=== PATIENT | male | born 1980 | race Caucasian/White ===

== ENCOUNTER 2016-11-29 15:38 | Emergency (ER) | payer BC ==
--- NOTE | ~2016-11-29 | CT2 ---
[facility] A Service of [facility] RADIOLOGY TEXT RESULTS PATIENT: CORNELIUS ARZOLA LOCATION: CFTX : 78 UNIT #: [id number] AGE: [address]: Jessica Jaramillo APRN SEX: M ORDER DR: [id number] [facility] [address] [place], [place] [address] [id number] MR#: [id number] #: [id number] NAME: CORNELIUS ARZOLA : 1980 SEX: M STUDY DATE/TIME: 11/29/2016 18:31 UNIT: CFTX ROOM: STUDY DESCRIPTION: CT Abd and Pelv W Cont Attending Physician: Jessica Jaramillo A.P.R.N. Referring Physician: Teddy Pedersen M.D. Ordering Physician: Phillip Nicole M.D. Primary Care Physician: No Primary Care Physician MEDICAL IMAGING REPORT This report is preliminary unless electronic signature is present EXAM CT abdomen and pelvis with IV and oral contrast, 11/29/2016. COMPARISON None. PROCEDURE Axial CT abdomen and pelvis with IV and oral contrast with multiplanar reformats. This CT exam was performed with one or more of the following radiation dose reduction techniques: automatic exposure control, adjustment of mA and/or kV according to patient size, and iterative reconstruction. HISTORY Three day history of right-sided abdominal pain and diarrhea. FINDINGS The lung bases are normal. ABDOMEN: The liver and gallbladder are normal. The spleen and pancreas are normal. The kidneys and adrenal glands are normal and the aorta is normal in caliber. There is no bowel obstruction. PELVIS: The appendix is clearly seen and is normal. There is no hernia or bowel obstruction or pelvic mass, adenopathy, inflammatory change or abnormal fluid collection. The bony structures are normal. IMPRESSION Normal negative CT abdomen and pelvis. Normal appendix, no renal or bowel [facility] A Service [facility] RADIOLOGY TEXT RESULTS PATIENT: CORNELIUS ARZOLA LOCATION: CFTX : 78 UNIT #: [id number] AGE: [address]: Jessica Jaramillo APRN SEX: M ORDER DR: or biliary obstruction, no hernia, no acute abnormality. Dictated by... Gómez Tobin M.D. THIS IS AN ELECTRONICALLY VERIFIED REPORT Gómez Tobin M.D. at 12/02/2016 5:35 PM JEEVAN/kathleen TD: 11/30/2016 02:27 JOB #: [id number] MEDICAL IMAGING REPORT Page 1 of 1 COPY
[2016-11-29 16:15] LABS: BASOPHIL% 0.4 % (0-2.5); EOSINOPHIL# 0.1 X10e3 (0-0.7); EOSINOPHIL% 1.4 % (0.0-7.0); HEMOGLOBIN 16.2 gm/dL (13.0-16.0); LYMPHOCYTE# 2.1 X10e3 (1.0-3.5); LYMPHOCYTE% 21.4 % (17.0-45.0); MEAN CELL VOLUME 90.1 FL (83-96); MEAN CORPUSCULAR HEMOGLOBIN 30.4 PG (28-34); MEAN CORPUSCULAR HGB CONC 33.7 g/dL (30-36); MEAN PLATELET VOLUME 8.1 FL (6.5-11.5); MONOCYTE# 0.7 X10e3 (0-1.0); MONOCYTE% 6.8 % (3.0-12.0); NEUTROPHIL# 6.8 X10e3 (1.5-7.1); PLATELET COUNT 192 X10e3 (140-420); RED BLOOD COUNT 5.32 X10e (3.90-5.60); RED CELL DISTRIBUTION WIDTH 13.2 % (11.0-15.5); WHITE BLOOD COUNT 9.8 X10e3 (4.0-10.5)
[2016-11-29 16:26] LABS: DIFF IND NO
[2016-11-29 16:48] LABS: ALBUMIN SERUM 4.9 g/dL (3.5-5.0); BILIRUBIN, DIRECT 0.2 mg/dL (0.0-0.2); BILIRUBIN,INDIRECT 0.8 mg/dL (0.0-0.9); BUN/CREATININE RATIO 11.11; CALCIUM SERUM 9.7 mg/dL (8.4-10.2); CREATININE SERUM 0.9 mg/dL (0.6-1.4); GLOM FILT RATE Estimated 108.7 mL/min (>60); POTASSIUM 3.6 mmol/L (3.5-5.1); PROTEIN TOTAL SERUM 7.9 g/dL (6.0-8.3)
[2016-11-29 17:17] LABS: URINE SOURCE CLEAN CATCH
[2016-11-29 17:26] LABS: URINE APPEARANCE CLEAR; URINE BILIRUBIN NEG (NEG); URINE BLOOD NEG (NEG); URINE COLOR YELLOW; URINE GLUCOSE NEG (NEG); URINE KETONE NEG (NEG); URINE LEUKOCYTE ESTERASE NEG (NEG); URINE NITRATE NEG (NEG); URINE PROTEIN NEG (NEG); URINE SPECIFIC GRAVITY 1.006 (1.003-1.035); URINE UROBILINOGEN 0.2 MG/DL (NEG)
[2016-11-29 17:45] LABS: CULTURE INDICATED? NO
== END 2016-11-29 19:19 | disposition home or self-care (01) ==
LOC: CED 15:38 → CFTX 15:38
DX: R10.31 Right lower quadrant pain (principal); F17.200 Nicotine dependence, unspecified, uncomplicated; Z98.890 Other specified postprocedural states; Z88.1 Allergy status to other antibiotic agents
CPT/HCPCS: 36415; 74177; 80048; 80076; 81003; 83690; 85025; 96361; 96374; 96375; 99284; J2270; J2405; Q9967